=== PATIENT | female | born 1945 | race Caucasian/White ===

== ENCOUNTER → 2016-09-19 | Outpatient (CLI) | payer OTHER ==
[~2016-09-19] MED LIST: ATOR-24 PO; LEVO50TA PO; LISI20TA PO; METF1TAB53 PO; METO50TA16 PO; POTA20TA16 PO
--- NOTE | 2016-09-19 12:36 | MAMMOGRAPHY REPORT ---
BILATERAL DIGITAL SCREENING MAMMOGRAM WITH CAD: 09/19/2016 CLINICAL HISTORY: Routine screening. Patient has no complaints. TECHNIQUE: Bilateral CC, MLO and XCCL views were obtained. Current study was also evaluated with a Computer Aided Detection (CAD) system. COMPARISON: Comparison is made to exams dated: 09/14/2015 mammogram, 09/02/2013 mammogram, 09/08/20 14 mammogram, 08/27/2012 mammogram, 08/22/2011 mammogram, and 08/17/2010 mammogram - [facility]. BREAST COMPOSITION: The tissue of both breasts is almost entirely fatty. FINDINGS: There are a few stable benign-appearing punctate microcalcifications and mild vascular yaima cifications in the breasts. No suspicious mass, architectural distortion or cluster of new, suspici ous microcalcifications is seen. IMPRESSION: ACR BI-RADS CATEGORY 1: NEGATIVE There is no mammographic evidence of malignancy. A 1 year screening mammogram is recommended. The p atient will receive written notification of the results. Approximately 10% of breast cancers are not detected with mammography. A negative mammographic repor t should not delay biopsy if a clinically suggestive mass is present. Alina Tang M.D. ay/:09/19/2016 09:01:55 Wildlife Protector: Suzanna RAYGOZA(R)(M), [facility] letter sent: Normal 1/2 BI-RADS Code: ACR BI-RADS Category 1: Negative
== END | disposition home or self-care (01) ==
LOC: C.MAMM 07:10
PROVIDERS: ATTEND Obstetrics & Gynecology
DX: Z12.31 Encounter for screening mammogram for malignant neoplasm of breast (principal)

== ENCOUNTER → 2016-10-17 | Outpatient (CLI) | payer OTHER | END | disposition home or self-care (01) | LOC: C.LABBC 13:37 | PROVIDERS: ATTEND Internal Medicine Geriatric Medicine | DX: Z11.59 Encounter for screening for other viral diseases (principal) ==

== ENCOUNTER → 2016-11-10 | Outpatient (CLI) | payer OTHER ==
--- NOTE | 2016-11-11 06:28 | PAP/PSG TECHNICIAN REPORT ---
[facility] Timber Setter Polysomnogram Report Study name: None Report date: 11/11/2016 Study date: 11/10/2016 Referring Physician: Antoine Turner M.D. Name: SHASTA KUO Interpreting Physician: Agnes Turner M.D. Date of : 1945 Timber Setter: CIRILO Luis. Sex: Female Age: 70 StudyType: PSG Weight: 207 lbs Height: 70 years, Height 5' 1" Neck Circum:15inches BMI: 39.11 Medications: Ferrous Gluconate 325mg, Levoxyl 50mcg, Lipitor 40mg, Lisinopril- HCTZ 20-12.5mg, Meloxicam 15mg, Glucophage 1000mg, Omeprazole 20mg, Potassium Chloride ER 20MEQ, Toprol XL 100mg Patient History Study started on room air with ETCO2 in room #6. 70 yr old female here tonight for a possible split psg. She was hospitalized at the end of June and she was noted to have low oxygen levels during sleep and pauses in her breathing during the night. She has been told that she snores. Her ESS=5/24. Neck circ=15inches. Parameters Monitored NPSG: E1-M2, E2-M1, Fp1-M2, Fp2-M1, F3-M2, F4-M2, F4-M1, C3-M2, C4-M2, C4-M1, O1-M2, O2-M2, O2-M1, T3-M2, T4-M1, P3-M2, P4-M1, CHIN1, CHIN2, HR, EKG, Legs, PFLOW, SNOR, FLOW, CFLOW, Tidal Volume, THOR, ABDO, SpO2, PLTH, CPRESS, ETCO2 Wave, ETCO2, pH Sleep Architecture Sleep Stages Time at Lights Off 10:02:30 PM STAGES Time (min.) TST (%) Time at Lights On 5:34:30 AM Wake 49.0 -- Total Recording Time (TRT) 452.00 min. N1 42.0 10 Total Sleep Period (TSP) 451.5 min. N2 217.0 54 Total Sleep Time (TST) 403.0min. N3 74.0 18 Awake Time 49.0 min. REM 70.0 17 Wake after Sleep Onset 48.5 min. Sleep Efficiency (SE) 89 % Sleep Onset Latency (WINNIE) 0.5 min. Number of Stage 1 Shifts None Awakenings 42 Stage Changes 175 Number of REM periods 7 REM 70.0 17 REM Latency 93.5 min. NREM 333.0 83 Body Position Analysis Supine Right Left Side Prone Vertical Total Sleep Time (min.) 97.6 315.3 0.0 315.29 0.0 0.0 Total Sleep Time (%) 22% 78% 0% 78 0% N/A% Total Sleep Time REM (min.) 0.0 70.0 0.0 None 0.0 0.0 Total Sleep Time NREM (min.) 87.7 245.3 0.0 None 0.0 0.0 Intermittent Wake (min.) 9.9 39.1 0.0 None 0.0 0.0 Total Sleep Period (%) 22% None None None None None Arousals Myoclonus (PLM) * Events Count Index Events Count Index Spontaneous 45 7 Events Awake (PLMW) 79 96.7 Respiratory 5 0.7 Events Asleep w/ Arousal (PLMA) 32 4.8 PLM 32 5 Events Asleep w/o Arousal (PLMS) 164 24.4 Snoring 6 1 Total Asleep 196 29.2 Total 88 13 Total 275 37 Respiratory Analysis * CA OA MA CH H RERA Total Count 1 1 0 0 84 0 86 Index 0.1 0.1 0.0 0 12.5 0 12.8 Mean Duration 0.1 12.7 0.0 0.00 16.8 0.0 16.6 Longest Duration 0.1 12.7 0.0 0.00 0.0 0.0 50.9 Respiratory Event Summary Total Supine ~Supine Right Left Prone REM NREM Apneas Count 2 1 1 1 N/A N/A 1 1 Index 0.3 1 0 0.2 N/A N/A 1 0 Hypopneas (4% Desat) Count 84 2 82 82 N/A N/A 63 21 Index 12.5 1.4 16 15.6 N/A N/A 54.0 3.8 Apneas & All Hypopneas Count 86 3 83 83 N/A N/A 64 22 Index 12.8 2 16 16 N/A N/A 54.9 4.0 Respiratory Events (Acidizer Helper+All Hyp+RERA) Count 86 3 83 83 N/A N/A 64 22 Index 12.8 2 16 15.8 N/A N/A 54.9 4.0 Respiratory Related Arousal Count 5 3 4 4 N/A N/A 4 1 Index 0.7 1 1 1 N/A N/A 3 0 Snoring Analysis Supine Right Left Prone REM NREM Total Snore duration 4.5 min Snores count 15 56 N/A N/A 4 67 71 Snore mean duration 3.8 Sec Snores index 10 11 N/A N/A 3.4 12.1 10.6 TST with snoring (%) 1.1% SpO2 Analysis Total REM NREM Awake <50% 0.0 min. 0.0 min. 0.0 min. 0.0 min. 51 - 60% 0.0 min. 0.0 min. 0.0 min. 0.0 min. 61 - 70% 0.0 min. 0.0 min. 0.0 min. 0.0 min. 71 - 80% 1.5 min. 1.4 min. 0.1 min. 0.0 min. 81 - 90% 290.7 min. 47.9 min. 218.9 min. 24.0 min. 91 - 100% 158.5 min. 20.7 min. 113.0 min. 24.8 min. Average 90 88 90 91 Minimum SpO2 76 76 79 87 Desaturation Event Index 16.5 54.9 9.5 13.5 # Desat. Events below 89% 102 62 35 5 Time(%) with Saturation below 89% 13.9 7.6 5.8 0.5 Time(min.) with Saturation below 89% 62.6 34.2 26.2 2.1 Heart Rate Analysis End Tidal CO2 Analysis Min (bpm) Max (bpm) Average (bpm) TSP (mins) % of TSP Awake 69 82 76 Above 55 mmHg 0.0 0.0 NREM 68 81 74 50-55 mmHg 0.0 0.0 REM 65 80 73 45-50 mmHg 7.6 1.9 Overall 65 81 74 40-45 mmHg 280.6 69.6 35-40 mmHg 95.5 23.7 30-35 mmHg 14.4 3.6 Average ETCO2 0.2 Supplemental O2 Values Minimum O2 level: None Value Start Time End Time Timber Setter Comments Mrs. Kuo slept in the right and supine positions. No cardiac arrhythmia noted. Some leg movements were noted. No bruxism noted. Snoring was noted and scored as a 1 on a scale of 1 through 5. (0=no snoring, 5=snoring loud enough to be heard through a closed door or down the delgado way). She did not use the restroom during the night. She stated that she slept about the same as when at home. The final report will be interpreted and signed by a sleep physician. The completed physician report will then be placed in the patient medical record. Therapy (cm H2O) 0 TIB (min.) 452.0 TST (min.) 403.0 Sleep Onset (min.) 0.5 REM Onset From Sleep (min.) 93.5 Sleep Efficiency % 89 Wakefulness (%) 11 Wakefulness (min.) 49.0 NREM 1 (%) 10 NREM 1 (min.) 42.0 NREM 2 (%) 54 NREM 2 (min.) 217.0 NREM 3 (%) 18 NREM 3 (min.) 74.0 REM (%) 17 REM (min.) 70.0 # Arousals 88 Arousal Index 13 # Snore 71 Snore Index 10.6 AHI 12.8 AHI Supine 2 AHI Non-Supine 16 NREM AHI 4.0 REM AHI 54.9 RDI 12.8 # Obstructive Apnea 1 # Central Apnea 1 # Mixed Apnea 0 # Hypopneas 84 RERAs 0 Total Respiratory Events 87 Time Below SpO2 89% (min.) 60.4 Mean NREM SpO2 (%) 90 Mean REM SpO2 (%) 88 Mean Sleep SpO2 (%) 90 Min NREM SpO2 (%) 79 Min REM SpO2 (%) 76 Position Supine (min.) 97.6 Position Non-supine (min.) 315.3 LM Index Sleep 29.2 LM Index NREM 33.5 LM Index REM 8.6 Mean Heart Rate (bpm) 74 Min Heart Rate (bpm) 65
--- NOTE | 2016-11-28 09:51 | POLYSOMNOGRAPH REPORT ---
REFERRING PERSON: Dr. Armida Turner. CAR INSPECTOR: Denise Mix. Ms. Chacon is a 70-year-old female sent for a possible split night sleep study. She was hospitalized at the end of June and noted to have nocturnal hypoxemia with sleep. She has been told she snores. Her [place] sleepiness scale score on the evening of this study is 5. BMI is 39.11. Following the technical and digital specifications of the [place] [employer] (AASM) a standard diagnostic polysomnogram was performed monitoring EEG, EOG, EMG (chin and leg deviations), oxygen saturation, body position, digital video, respiratory effort and airflow. The sleep Stage and event scoring was based on the AASM Manual for the Scoring of Sleep and Associated Events 2007 edition. Apneas are defined as a drop in the peak thermal sensor excursion by >90% of baseline for at least 10 seconds. Hypopneas were scored using the 4% oxygen desaturation rule (4A-[employer]ic[employer]) and a decrease in the nasal pressure excursions by >30% of baseline for at least 10 seconds. Respiratory effort-related arousal (RERA's) is defined as a sequence of breaths lasting at least 10 seconds characterized by increasing respiratory effort or flattening of the nasal pressure waveform leading to an arousal from sleep when the sequence of breaths does not meet criteria for an apnea or hypopnea. Apnea Hypopnea index (AHI) is defined as the number of apneas and hypopneas occurring in an hour of sleep. Respiratory disturbance index (RDI) is defined as the number of apneas, hypopneas, and RERA's occurring in an hour of sleep. Ms. Chacon total sleep period time was 451.5 minutes. Total sleep time was 403 minutes. Sleep efficiency was 89%. Latency to sleep onset was short at 0.5 minutes with wake after sleep onset of 48.5 minutes. Total non-REM sleep time was 333 minutes. She spent 10% of that time in N1 sleep, 54% in N2 sleep and 18% in N3 sleep. REM latency was 93.5 minutes. Total REM sleep time was 40 minutes or 17% of total sleep time. There were 88 cortical arousals from sleep. 6 of these arousals were due to snoring, 32 due to periodic limb movements of sleep, 5 due to respiratory events and 45 were spontaneous. There were 193 periodic limb movements noted on this test. Limb movement index was 29.2; however, limb movement with arousal index was only 4.8. There was 1 central apnea, 1 obstructive apnea and no mixed apneas on this test. There were 84 hypopnea. Apnea-hypopnea index was 12.8 consistent with mild sleep apnea. REM AHI was 54.9. Supine AHI was 16. There were 71 recorded snoring events. Total sleep time with snoring was 1.1%. Mean saturation with sleep was borderline low at 90%. There were desaturations with respiratory events 76%. Saturations were less than 89 for 62.6 minutes of recording time. This is significant nocturnal hypoxemia. There was no cardiac ectopy noted on this study. Heart rates during sleep ranged from a low of 65 beats per minute to a high of 81 beats per minute. End tidal CO2s were recorded on this test. End tidal CO2s were between 40 and 45 mmHg for 69.6% of total sleep period time, between 35 and 40 mmHg for 23.7% and between 30 and 35 mmHg for 3.6% of total sleep period time. IMPRESSION AND PLAN: 70-year-old female with evidence of mild sleep apnea worse in supine sleep as well as REM sleep which significant nocturnal hypoxemia on this study. 1. This patient would likely benefit from positive airway pressure therapy. She should return to the sleep lab for a full night titration and then based on those results be started on equipment at home. A download from her machine can be reviewed in 1 month both to check compliance as well as AHI and further pressure adjustments can occur at that time. 2. Should this patient be unwilling or unable to tolerate CPAP therapy, she should be referred to ear, nose and throat or oral surgery/dental medicine (if appropriate) to discuss alternative treatments for sleep disorder breathing.
== END | disposition home or self-care (01) ==
LOC: C.NEUR 20:00
PROVIDERS: ATTEND Family Medicine
DX: R06.81 Apnea, not elsewhere classified (principal); G47.10 Hypersomnia, unspecified; R06.83 Snoring; G47.34 Idiopathic sleep related nonobstructive alveolar hypoventilation

== ENCOUNTER → 2017-01-18 | Outpatient (CLI) | payer OTHER ==
--- NOTE | 2017-01-19 06:21 | PAP/PSG TECHNICIAN REPORT ---
[facility] Tank Pumper Polysomnogram Report Study name: None Report date: 01/19/2017 Study date: 01/18/2017 Referring Physician: Shaye Wiley PA-C Name: SHASTA KUO Interpreting Physician: Doron Marcus M.D. Date of : 1945 Tank Pumper: Kevin Rosas RPSGT. Sex: Female Age: 71 StudyType: PSG PAP Weight: 207 lbs Height: 71 years, Height 5' 1" BMI: 39.11 Medications: OMEPRAZOLE 20 MG, METFORMIN HCL 1000 MG, ONETOUCH ULTRA, ATORVASTATIN CALCIUM 40 MG, KLOR-CON M20, LISINOPRIL-HYDROCHLOROTHIAZIDE 20-12.5 MG, METOPROLOL SUCCINATE ER 100 MG, LEVOTHYROXINE SODIUM 50 MCG, MELOXICAM 15 MG, FERROUS GLUCONATE 325 MG Patient History PATIENT RECENTLY HAD A SLEEP STUDY DONE AND WAS POSITIVE FOR SUHAS WITH AN AHI 12.8/HR. SHE IS HERE TODAY FOR A CPAP TITRATION. RM 6 Parameters Monitored NPSG: E1-M2, E2-M1, Fp1-M2, Fp2-M1, F3-M2, F4-M2, F4-M1, C3-M2, C4-M2, C4-M1, O1-M2, O2-M2, O2-M1, T3-M2, T4-M1, P3-M2, P4-M1, CHIN1, CHIN2, HR, EKG, Legs, PFLOW, SNOR, FLOW, CFLOW, Tidal Volume, THOR, ABDO, SpO2, PLTH, CPRESS, ETCO2 Wave, ETCO2, pH Sleep Architecture Sleep Stages Time at Lights Off 10:23:09 PM STAGES Time (min.) TST (%) Time at Lights On 5:10:39 AM Wake 96.0 -- Total Recording Time (TRT) 408.00 min. N1 46.0 15 Total Sleep Period (TSP) 393.5 min. N2 162.0 52 Total Sleep Time (TST) 311.5min. N3 44.0 14 Awake Time 96.5 min. REM 59.5 19 Wake after Sleep Onset 82.5 min. Sleep Efficiency (SE) 76 % Sleep Onset Latency (WINNIE) 13.5 min. Number of Stage 1 Shifts None Awakenings 49 Stage Changes 158 Number of REM periods 5 REM 59.5 19 REM Latency 75.0 min. NREM 252.0 81 Body Position Analysis Supine Right Left Side Prone Vertical Total Sleep Time (min.) 30.3 284.2 0.0 284.23 0.0 0.0 Total Sleep Time (%) 9% 91% 0% 91 0% N/A% Total Sleep Time REM (min.) 0.0 59.5 0.0 None 0.0 0.0 Total Sleep Time NREM (min.) 27.3 224.7 0.0 None 0.0 0.0 Intermittent Wake (min.) 3.0 93.0 0.0 None 0.0 0.0 Total Sleep Period (%) 8% None None None None None Arousals Myoclonus (PLM) * Events Count Index Events Count Index Spontaneous 45 9 Events Awake (PLMW) 30 18.8 Respiratory 1 0.2 Events Asleep w/ Arousal (PLMA) 25 4.8 PLM 25 5 Events Asleep w/o Arousal (PLMS) 397 76.5 Snoring 1 0 Total Asleep 422 81.3 Total 72 14 Total 452 67 Respiratory Analysis * CA OA MA CH H RERA Total Count 0 0 0 0 30 0 30 Index 0.0 0.0 0.0 0 5.8 0 5.8 Mean Duration 0.0 0.0 0.0 0.00 16.9 0.0 16.9 Longest Duration 0.0 0.0 0.0 0.00 0.0 0.0 23.8 Respiratory Event Summary Total Supine ~Supine Right Left Prone REM NREM Apneas Count 0 0 0 0 N/A N/A 0 0 Index 0.0 0 0 0.0 N/A N/A 0 0 Hypopneas (4% Desat) Count 30 0 30 30 N/A N/A 26 4 Index 5.8 0.0 6 6.3 N/A N/A 26.2 1.0 Apneas & All Hypopneas Count 30 0 30 30 N/A N/A 26 4 Index 5.8 0 6 6 N/A N/A 26.2 1.0 Respiratory Events (Silviculture Teacher+All Hyp+RERA) Count 30 0 30 30 N/A N/A 26 4 Index 5.8 0 6 6.3 N/A N/A 26.2 1.0 Respiratory Related Arousal Count 1 0 1 1 N/A N/A 0 1 Index 0.2 0 0 0 N/A N/A 0 0 Snoring Analysis Supine Right Left Prone REM NREM Total Snore duration 1.3 min Snores count 0 19 N/A N/A 0 19 19 Snore mean duration 4.0 Sec Snores index 0 4 N/A N/A 0.0 4.5 3.7 TST with snoring (%) 0.4% Desaturation Event Summary: Minimum %SpO2 Event Count Mean/Min/Max Duration(sec.) Desaturation Index % Time In Bed > 90 41 33.5 / 9.0 / 56.5 6.3 95.8 86 - 90 2 11.8 / 9.0 / 14.5 7.0 4.2 81 - 85 0 N/A 0.0 0.0 76 - 80 0 N/A 0.0 0.0 71 - 75 0 N/A 0.0 0.0 66 - 70 0 N/A 0.0 0.0 61 - 65 0 N/A 0.0 0.0 56 - 60 0 N/A 0.0 0.0 51 - 55 0 N/A 0.0 0.0 < 50 0 N/A 0.0 0.0 Total REM NREM Awake <50% 0.0 min. 0.0 min. 0.0 min. 0.0 min. 51 - 60% 0.0 min. 0.0 min. 0.0 min. 0.0 min. 61 - 70% 0.0 min. 0.0 min. 0.0 min. 0.0 min. 71 - 80% 0.0 min. 0.0 min. 0.0 min. 0.0 min. 81 - 90% 17.2 min. 10.8 min. 4.1 min. 2.4 min. 91 - 100% 390.0 min. 48.7 min. 247.9 min. 93.4 min. Average 93 93 93 94 Minimum SpO2 85 85 89 87 Desaturation Event Index 6.0 26.2 3.6 0.6 # Desat. Events below 89% 6 6 N/A N/A Time(%) with Saturation below 89% 1.0 0.8 0.0 0.2 Time(min.) with Saturation below 89% 4.3 3.3 0.0 0.9 Time (mins) REM (mins) NREM (mins) % of TST SpO2 Below 90% 17 16 N1 1.9 SpO2 Below 88% 3 0 0 0 Heart Rate Analysis Min (bpm) Max (bpm) Average (bpm) Awake 57 75 65 NREM 56 73 64 REM 57 72 65 Overall 56 73 64 Supplemental O2 Values Minimum O2 level: None Value Start Time End Time Tank Pumper Comments Ms. Kuo slept in the right and supine positions. No cardiac arrhythmia noted. Leg movements noted. No bruxism noted. CPAP was initiated at +4 CMH2O and up-titrated to an optimal level of +11 CMH2O. A Resmed Airfit F10 size small full face mask was used during titration Ms. Kuo awoke to use the restroom 0 times during the night. Ms. Kuo stated I slept as well as I do when I am in my own bed. The final report will be interpreted and signed by a sleep physician. The completed physician report will then be placed in the patient medical record. Therapy Event: Therapy (cm H20) 4 5 7 9 10 11 Total Time at Pressure (min.) 101.5 89.3 19.0 120.1 36.0 41.6 TST at Pressure (min.) 78.5 73.8 19.0 85.6 32.0 22.6 # Periods 1 1 1 1 1 1 Sleep Onset (min.) 13.5 0.0 0.0 0.0 0.0 0.0 REM Onset (min.) 88.5 84.5 0.0 0.0 33.6 0.0 Sleep Efficiency % 77 82 100 71 88 54 Wakefulness (%) 22.7 17.4 0.0 28.7 11.1 45.6 Wakefulness (min.) 23.0 15.5 0.0 34.5 4.0 19.0 NREM 1 (%) 14.2 15.7 0.0 9.2 5.6 10.8 NREM 1 (min.) 14.5 14.0 0.0 11.0 2.0 4.5 NREM 2 (%) 38.4 54.3 0.0 54.4 15.7 8.4 NREM 2 (min.) 39.0 48.5 0.0 65.4 5.6 3.5 NREM 3 (%) 15.3 7.3 0.0 0.0 61.1 0.0 NREM 3 (min.) 15.5 6.5 0.0 0.0 22.0 0.0 REM (%) 9.4 5.3 100.0 7.7 6.6 35.2 REM (min.) 9.5 4.8 19.0 9.2 2.4 14.6 # Arousals 23 26 0 16 1 6 Arousal Index 17.6 21.1 0.0 11.2 1.9 15.9 # Snore 7 6 0 6 0 0 Snore Index 5.4 4.9 0.0 4.2 0.0 0.0 AHI 4.6 2.4 31.6 2.8 5.6 10.6 AHI Supine N/A N/A N/A 0.0 0.0 N/A AHI Non-Supine 4.6 2.4 31.6 2.9 26.2 10.6 NREM AHI 1.7 0.0 N/A 0.8 2.0 0.0 REM AHI 25.3 37.7 31.6 19.5 50.9 16.4 RDI 4.6 2.4 31.6 2.8 5.6 10.6 # Obstructive 0 0 0 0 0 0 # Central Ap 0 0 0 0 0 0 # Mixed 0 0 0 0 0 0 # Hypopneas 6 3 10 4 3 4 RERAS 0 0 0 0 0 0 Total Respiratory Events 6 3 10 4 3 4 Time Below SpO2 89.00% (min.) 2.3 0.7 0.0 0.0 0.3 0.0 Mean NREM SpO2 (%) 92 93 N/A 93 92 94 Mean REM SpO2 (%) 90 92 93 94 91 93 Mean Sleep SpO2 (%) 92 93 93 93 92 93 Min NREM SpO2 (%) 89 90 N/A 90 90 91 Min REM SpO2 (%) 87 86 89 89 85 89 Position Supine (min.) 0.0 0.0 0.0 2.1 25.1 0.0 Position Non-supine (min.) 78.5 73.8 19.0 83.4 6.9 22.6 LM Index Sleep 13.0 117.0 66.3 159.2 3.8 29.1 LM Index NREM 13.1 118.2 N/A 161.9 4.0 52.5 LM Index REM 12.6 100.5 66.3 136.7 0.0 16.4 Mean Heart Rate (bpm) 64 65 65 64 61 62 Min Heart Rate (bpm) 56 61 58 59 58 57
--- NOTE | 2017-01-19 16:59 | POLYSOMNOGRAPH REPORT ---
CLINICAL DATA: 71-year-old female with BMI of 39.1 referred by Shaye Wiley. She had a sleep study which showed sleep apnea with an AHI of 12.8. She is referred for a CPAP titration study. SLEEP ARCHITECTURE: Total sleep period was 393.5 minutes. Total sleep time was 311.5 minutes divided between 252 minutes of non-REM sleep and 59.5 minutes of REM sleep. Sleep onset latency was 13.5 minutes. REM latency was 75 minutes. Sleep efficiency was 76%. Wake after sleep onset was 82.5 minutes. Sleep consisted of stage N1 15%, N2 52%, N3 14%, REM 19%. AROUSAL DATA: 72 arousals were recorded for an index of 14 per hour. 45 were due to spontaneous arousals. 25 were due to PLMs. PLM DATA: Severe PLMD was noted. There were 422 limb movements during sleep noted for an index of 81.3 per hour with arousal index of 4.8 per hour. RESPIRATORY DATA: The AHI was 5.8. There were 30 hypopneic episodes, the mean duration of which was 16.9 seconds. OXIMETRY DATA: Transient nocturnal hypoxemia was seen. Oxygen tito was 85% during REM. The mean saturation was 92%. Time below 88% was 3 minutes. EKG: Heart ranged from 56-73 beats per minute. No arrhythmias were noted. SHIP SUPERINTENDENT'S COMMENTS AND TREATMENT SUMMARY: The patient slept in the right and supine positions. The patient used a ResMed AirFit F10 small full facemask. She was titrated up to a final pressure sitting 11 cm of water pressure. At her final pressure setting, she slept for 22 minutes with an AHI of 10.6. At 10 cm of water pressure, she slept for 32 minutes with an AHI of 5.6. At 9 cm water pressure, she slept for 85.6 minutes with an AHI of 2.8. IMPRESSION: Obstructive sleep improved on CPAP. The patient had adequate AHIs anywhere between 9 and 11 cm of water pressure. RECOMMENDATIONS: The patient could be started on CPAP at 11 cm of water pressure and seen back in followup within 90 days to document efficacy and compliance. [facility]
== END | disposition home or self-care (01) ==
LOC: C.NEUR 20:00
PROVIDERS: ATTEND Physician Assistant Medical
DX: G47.33 Obstructive sleep apnea (adult) (pediatric) (principal)

== ENCOUNTER → 2017-03-10 | Outpatient (CLI) | payer OTHER ==
--- NOTE | 2017-03-10 11:21 | DIAGNOSTIC IMAGING REPORT ---
CT OF THE CHEST WITHOUT IV CONTRAST CLINICAL HISTORY: R91.8 Pulmonary [id number] COMPARISON STUDY: 06/25/2016 CT DOSE: 568.41 mGy.cm TECHNIQUE: CT of the thorax was performed from the thoracic inlet to the lung bases. Images are reviewed in the axial, sagittal, and coronal planes. IV contrast was not administered for this examination. FINDINGS: Thyroid: Imaged portions of the thyroid gland are normal in appearance. Thoracic aorta: The thoracic aorta is normal in course and caliber, noting standard 3 vessel arch anatomy. Heart: The heart is normal in size and configuration, without pericardial effusion. Lungs and pleural spaces: No pleural effusions are visualized. There is no focal pulmonary consolidation. There are minor atelectatic changes within the right paraspinal region. There are several tiny solid right apical pulmonary nodules, the largest of which measures 4 mm. Tiny perifissural solid left apical pulmonary nodules are also visualized, the largest of which measures 3 mm. These nodules were obscured the prior study secondary to interstitial edema. Mediastinum: There is a lower right paratracheal lymph node at the upper limits of normal in size measuring 1 cm. Belia: There is no pathologic hilar adenopathy given the limitations of a noncontrast study Axilla: Clear. Upper abdomen: The gallbladder surgically absent Skeletal structures: There are no lytic or blastic osseous lesions. IMPRESSION: 1. Bilateral subcentimeter solid upper lobe pulmonary nodules, the largest of which measures 4 mm. 2. In a low risk patient, no follow-up is deemed necessary. In a high risk patient, a 12 month follow-up is considered optional Please refer to below summary of Fleischner criteria recommendations for follow-up of incidental CT nodules (Jose Amador, Guidelines for management of small pulmonary nodules detected on CT scans: A statement from the Fleischner Society, Radiology 237: [phone].) SOLID NODULES Solitary nodule size: <6 mm * low risk patients: no follow-up needed * high risk patients: optional CT at 12 months Solitary nodule size: 6-8 mm * low risk patients: follow-up at 6-12 months, then consider further follow-up at 18-24 months * high risk patients: initial follow-up CT at 6-12 months and then at 18-24 months if no change Solitary nodule size: >8 mm * either low or high risk patients - consider follow-up CT at 3 months, and/or CT-PET, and/or biopsy Multiple nodules size: <6 mm * low risk patients: no routine follow-up * high risk patients: optional CT at 12 months Multiple nodules size: 6-8 mm * low risk patients: follow-up at 3-6 months, then consider further follow-up at 18-24 months * high risk patients: follow-up at 3-6 months, then at 18-24 months if no change Multiple nodules size: >8 mm * low risk patients: follow-up at 3-6 months, then consider further follow-up at 18-24 months * high risk patients: follow-up at 3-6 months, then at 18-24 months if no change Note: newly detected indeterminate nodule in persons 35 years of age or older. * low risk patients: minimal or absent history of smoking and/or other known risk factors * high risk patients: history of smoking or of other known risk factors (e.g. first degree relative with lung cancer, or exposure to asbestos, radon, uranium) * if a nodule up to 8 mm is partly solid or is ground glass further follow-up is required after 24 months to exclude possible slow growing adenocarcinoma (CAMILLA) SUBSOLID NODULES Solitary pure ground-glass nodule * nodule size <6 mm - no CT follow-up required * nodule size >=6 mm - follow-up CT at 6-12 months, then every 2 years until 5 years Solitary part-solid nodule * nodule size <6 mm - no CT follow-up required * nodule size >=6 mm - follow-up CT at 3-6 months. If unchanged, and solid component remains <6 mm, then annual follow-up for 5 years Multiple subsolid nodules * nodule size <6 mm - follow-up CT at 3-6 months, consider further follow-up at 2 and 4 years if stable * nodule size >=6 mm - follow-up CT at 3-6 months, subsequent management based on the most suspicious nodule(s) Electronically signed by: Adam Johnson M.D. 03/10/2017 11:20 AM Dictated Date/Time: 03/10/2017 11:13 AM
== END | disposition home or self-care (01) ==
LOC: C.CTS 10:59
PROVIDERS: ATTEND Internal Medicine
DX: R91.8 Other nonspecific abnormal finding of lung field (principal)

== ENCOUNTER → 2017-09-25 | Outpatient (CLI) | payer OTHER ==
--- NOTE | 2017-09-25 15:08 | MAMMOGRAPHY REPORT ---
BILATERAL DIGITAL SCREENING MAMMOGRAM WITH CAD: 09/25/2017 CLINICAL HISTORY: Routine screening. Patient has no complaints. TECHNIQUE: Bilateral CC and MLO views were obtained. Current study was also evaluated with a Computer Aided Detection (CAD) system. COMPARISON: Comparison is made to exams dated: 09/19/2016 mammogram, 09/14/2015 mammogram, 09/08/2014 mammogram, 08/27/2012 mammogram, 08/22/2011 mammogram, and 08/17/2010 mammogram - [facility]. BREAST COMPOSITION: The tissue of both breasts is almost entirely fatty. FINDINGS: There are minimal vascular calcifications in the breasts and a few other scattered benign-a ppearing microcalcifications. No suspicious mass, architectural distortion or cluster of microcalcif ications is seen. IMPRESSION: ACR BI-RADS CATEGORY 1: NEGATIVE There is no mammographic evidence of malignancy. A 1 year screening mammogram is recommended. The pa tient will receive written notification of the results. Approximately 10% of breast cancers are not detected with mammography. A negative mammographic report should not delay biopsy if a clinically suggestive mass is present. Alina Tang M.D. ay/:09/25/2017 08:04:16 [employer]: Cary RAYGOZA(Cristy)([place]), [facility] letter sent: Normal 1/2 BI-RADS Code: ACR BI-RADS Category 1: Negative
== END | disposition home or self-care (01) ==
LOC: C.MAMM 07:12
PROVIDERS: ATTEND Internal Medicine
DX: Z12.31 Encounter for screening mammogram for malignant neoplasm of breast (principal)